=== PATIENT | female | born 1995 | race Caucasian/White ===

== ENCOUNTER 2018-12-22 13:00 | Emergency (ER) | payer MEDICAID ==
[~2018-12-22] VITALS: Ht 157.5 cm; Wt 68.0 kg
[2018-12-22 13:33] VITALS: BP 104/63
== END 2018-12-22 15:46 | disposition home or self-care (01) ==
LOC: ER 13:06
DX: N63.11 Unspecified lump in the right breast, upper outer quadrant (principal)